=== PATIENT | female | born 2000 | race Caucasian/White ===

== ENCOUNTER → 2019-10-29 | Outpatient (CLI) | payer OTHER | LOC: LAB 10:46 | PROVIDERS: ATTEND Neuromusculoskeletal Medicine & OMM | DX: R06.02 Shortness of breath (principal); J02.9 Acute pharyngitis, unspecified; Z20.828 Contact with and (suspected) exposure to other viral communicable diseases ==

== ENCOUNTER → 2019-11-20 | Outpatient (CLI) | payer OTHER | LOC: LAB 13:45 | PROVIDERS: ATTEND Nurse Practitioner | DX: Z01.812 Encounter for preprocedural laboratory examination (principal); Z11.59 Encounter for screening for other viral diseases ==